=== PATIENT | female | born 1945 | race Caucasian/White ===

== ENCOUNTER → 2017-02-08 | Day surgery (SDC) | payer MEDICARE ==
[~2017-02-08] VITALS: Ht 157.5 cm; Wt 79.5 kg
[~2017-02-08] MED LIST: ACETAMINOPHEN 325 MG TAB PO PRN; ASPI81TA11 PO; BUPR100T4 PO; CALC1TAB34 PO; CHLORHEXIDINE GLUCONATE 2 % 1 PACK (2 CLOTHS) TOPICAL PRN; HYALURONIDASE/LIDOCAINE/EPINEPHRINE/BUPIVACAINE 6 ML SYR RIGHT EYE ONE; IMIT100T PO; INSULIN HUMAN REGULAR 1,000 UNITS/10 ML VIAL SQ PRN; LACTATED RINGER'S 1000 ML IV PRN; LEXA20TA PO; LORA-400 PO; METOPROLOL TARTRATE 25 MG TAB PO PRN; MULT1TAB46 PO; OXYB10TA PO; OXYB5TAB10 PO; PHEN-425 PO; POVIDONE IODINE 5% (ANTISEPSIS KIT) 4 APPLICATIONS EACH NARE PRN; PRAV80TA2 PO; PRIL20TA2 PO; PROPARACAINE HCL 0.5% OPHT SOLN 15 ML BTL RIGHT EYE ONE; PROPOFOL 200 MG/20 ML AMP ONE; REFRDRO RIGHT EYE; SODIUM CHLORID 0.9% 500 ML IV PRN; TOBRAMYCIN/DEXAMETHASONE OPTH OINT 3.5 GM TUBE ONE; TOPR50TA PO; VITA250T3 PO; VITA400C70 PO; VITACAP7 PO; ZANTTAB11 PO; [UNRECOGNIZED DRUG - CODE] NASAL
[2017-02-08 07:30] VITALS: PULSE 78
[2017-02-08] MEDS: PHENYLEPHRINE HCL 10% OPTH SOLN 5 ML BTL RIGHT EYE SCH ×4 (07:40→07:55)
[2017-02-08] MEDS: CYCLOPENTOLATE HCL 1% OPHT SOLN 2 ML BTL RIGHT EYE SCH ×4 (07:40→07:55)
[2017-02-08] MEDS: FLURBIPROFEN 0.03% OPHT SOLN 2.5 ML BTL RIGHT EYE SCH ×4 (07:40→07:55)
[2017-02-08] MEDS: TROPICAMIDE 1% OPHT SOLN 15 ML BTL RIGHT EYE SCH ×4 (07:40→07:55)
[2017-02-08 08:05] VITALS: PULSE 79
[2017-02-08] MEDS: LIDOCAINE HCL 1% PF 30 ML VIAL ONE (09:04)
[2017-02-08 09:35] VITALS: BP 114/62; PULSE 76; RESP 16; TEMP 98; O2SAT 99
--- NOTE | 2017-02-10 12:35 | MP ---
cc: MASON CARRION M.D. Corrected Copy: 02/14/17 [facility] NUMBER: [id number] DATE OF SURGERY: 02/08/2017 PREOPERATIVE DIAGNOSIS: Visually significant cataract right eye. POSTOPERATIVE DIAGNOSIS: Visually significant cataract right eye. OPERATION: Phacoemulsification with posterior chamber lens implantation, right eye. SURGEON: Mason Carrion MD ANESTHESIA: Retrobulbar with MAC. COMPLICATIONS: None. PROCEDURE: After informed consent was obtained, the patient was brought into the operative suite and placed on appropriate monitors by the Anesthesia Service. The patient had received a prior retrobulbar injection of local anesthetic by the Anesthesia Service in the holding area. The patient's operative eye was then prepped and draped in the usual sterile fashion. A wire lid speculum was placed. A paracentesis incision was made in the peripheral cornea with a 1 mm ronald keratome. The anterior chamber was filled with viscoelastic. The anterior chamber was then entered through a stepped, clear corneal incision using a sharp 3 mm ronald keratome. A circular tear capsulorrhexis was then made with a bent needle cystitome. Following hydrodissection of the lens nucleus with balanced saline, phaco-emulsification of the nucleus was performed using a modified chopping technique. The remaining cortex was removed with irrigation/aspiration. The prior two procedures were both performed using the handpieces of the [employer] phaco unit. The capsular bag was then filled with viscoelastic. The intraocular lens was then injected into the capsular bag and positioned. The type of intraocular lens and its power can be found elsewhere in this chart. The remaining viscoelastic was then removed from the anterior chamber with the IA handpiece. The anterior chamber was reformed with balanced saline. The wound was then closed securely with stromal hydration. It was found to be watertight to an intraocular pressure of at least 30 mmHg by palpation. A small amount of balanced salt solution was then removed through the paracentesis site and the intraocular pressure at the end of the case was approximately 20 by palpation. All drapes were then removed. TobraDex ointment was then placed in the eye, which was closed beneath a semi-pressure patch dressing. The patient tolerated this procedure well and left the operating room awake and alert. The patient is to follow-up in my office in the morning. MD Colt Dimas /10:20 AM /11:56 AM
== END | disposition home or self-care (01) ==
LOC: PHSDC 06:57
PROVIDERS: ATTEND Optometrist Occupational Vision
DX: H25.11 Age-related nuclear cataract, right eye (principal); H52.31 Anisometropia; H43.811 Vitreous degeneration, right eye; H04.123 Dry eye syndrome of bilateral lacrimal glands; G51.8 Other disorders of facial nerve; G51.0 Bell's palsy; G24.5 Blepharospasm; I70.0 Atherosclerosis of aorta; K21.9 Gastro-esophageal reflux disease without esophagitis; E78.5 Hyperlipidemia, unspecified; N32.81 Overactive bladder; G47.30 Sleep apnea, unspecified; G47.33 Obstructive sleep apnea (adult) (pediatric); I37.0 Nonrheumatic pulmonary valve stenosis; E04.1 Nontoxic single thyroid nodule; D33.3 Benign neoplasm of cranial nerves; K29.70 Gastritis, unspecified, without bleeding
CPT/HCPCS: 00142; 66984; J7040; V2632